=== PATIENT | male | born 1990 | race Two or more races ===

== ENCOUNTER 2022-04-23 18:20 | Emergency (ER) | payer OTHER ==
[~2022-04-23] VITALS: Ht 175.3 cm; Wt 90.7 kg
[2022-04-23 18:36] VITALS: BP 119/86
[2022-04-23] MEDS ORDERED: KETOROLAC TROMETHAMINE 15 MG/ML VIAL ONE (18:58)
[2022-04-23] MEDS ORDERED: DEXAMETHASONE SOLN 5 MG/5 ML UDC ONE (18:59)
[2022-04-23] MEDS ORDERED: CYCLOBENZAPRINE 10 MG TABLET ONE (18:59)
[2022-04-23] MEDS ORDERED: KETOROLAC TROMETHAMINE INJ 60 MG/2 ML VIAL IM ONE (19:00)
[2022-04-23] MEDS ORDERED: CYCLOBENZAPRINE 10 MG TABLET PO ONE (19:00)
[2022-04-23] MEDS ORDERED: DEXAMETHASONE SOLN 5 MG/5 ML UDC PO ONE (19:00)
[2022-04-23] MEDS ORDERED: NAPR-1192 PO (19:32)
[2022-04-23] MEDS ORDERED: METH4TAB3 PO (19:32)
[2022-04-23] MEDS ORDERED: CYCL5TAB PO (19:32)
--- NOTE | 2022-04-23 20:00 | NUR ---
Patient discharged to home in stable condition. Written and verbal after care instructions given. Patient verbalizes understanding of instruction.
== END 2022-04-23 20:00 | disposition home or self-care (01) ==
LOC: ER 18:30
DX: M54.16 Radiculopathy, lumbar region (principal); M79.604 Pain in right leg; Z79.899 Other long term (current) drug therapy
CPT/HCPCS: 96372; 99283; J1885; J8540